=== PATIENT | female | born 1940 | race Caucasian/White ===

== ENCOUNTER → 2016-09-25 | Outpatient (REF) | payer MEDICARE, BC ==
[~2016-09-25] MED LIST: ACET500C PO; ASPI1TAB PO; CALC500T19 PO; CITRTAB15 PO; COUM1TAB17 PO; CRAN250T PO; FLAX1000 PO; FLOM5CAP PO; FLON1SPR; FLUTISP; IMOD2TAB16 PO; LEVO50TA5 PO; LEVO75TA4 PO; METR0.7533 PV; OMEP40CA2 PO; PROBCAP4 PO; REST0.05 OU; SERT-141 PO; SIMV40TA2 PO; TOPR25TA PO
== END ==
LOC: M LAB REF 08:30
PROVIDERS: ATTEND Internal Medicine
DX: R19.7 Diarrhea, unspecified (principal)

== ENCOUNTER → 2016-09-26 | Outpatient (CLI) | payer MEDICARE, BC ==
--- NOTE | 2016-09-26 12:29 | REPMRS ---
Patient History The patient states she has not had a clinical breast exam in over a year. Patient is postmenopausal. Family history of colorectal cancer in father at age 50 or over, breast cancer in mother at age 30, colorectal cancer in paternal cousin at age 74, and endometrial cancer in paternal cousin under age 50. Benign excisional biopsy of both breasts. Benign excisional biopsy of the right breast. Took unspecified hormones for 7 years. Digital Woman Screen Mammo: September 26, 2016 - Exam #: [id number] Bilateral CC and MLO view(s) were taken. Technologist: Shaneka Murphy Technologist Prior study comparison: September 19, 2015, digital woman screen mammo performed at [facility] to [facility]. September 13, 2014, digital woman screen mammo performed at [facility]. September 03, 2013, bilateral bilat screen digital mammo, performed at [facility] ([facility] FINDINGS: There are scattered fibroglandular densities. There has been no change in the appearance of the mammogram from the prior studies. There is a mild amount of scattered fibroglandular density which is fairly symmetric. There is no interval development of dominant mass, architectural distortion, or clustered microcalcification suggestive of malignancy. ASSESSMENT: BI-RADS/ACR category 1 mammogram. Negative. Recommendation Routine screening mammogram in 1 year (for women over age 40). This mammogram was interpreted with the aid of an FDA-approved computer-aided dectection system. Electronically Signed By: Tomi Quiñonez MD 09/26/16 0259
--- NOTE | 2016-09-27 08:54 | DEXA ---
AP SPINE L1 - L4 1.216 0.2 1.7 LT FEMUR TOTAL 0.855 -1.2 0.5 RT FEMUR TOTAL 0.860 -1.2 0.5 TOTAL BODY TOTAL OTHER DUAL FEMUR FRAX* ASSESSMENT Risk factors: Premature menopause. 10 year probability of fracture Major osteoporotic fracture 14.7 % Hip fracture 4.0 % COMMENTS: Normal bone densitometry of the spine. There is low bone density of the hips. The density the spine has increased 3.9% since initial exam on 06/23/2006. The spine density has increased 1.9% since the most recent exam on 11/08/2013. The density of the left hip has decreased 1.0% since initial exam on 06/23/2006. The density of the left hip has decreased 1.2% since the most recent exam on . The density of the right hip has decreased 0.8% since initial exam on 2005. The density of the right hip has increased 0.1% since the most recent exam on . FOLLOW-UP: Recommendation for the next bone density exam: 2 years. MARGRET
== END ==
LOC: M WHC 10:59
PROVIDERS: ATTEND Internal Medicine
DX: Z12.31 Encounter for screening mammogram for malignant neoplasm of breast (principal); Z13.820 Encounter for screening for osteoporosis; M85.80 Other specified disorders of bone density and structure, unspecified site; M81.0 Age-related osteoporosis without current pathological fracture; Z80.3 Family history of malignant neoplasm of breast; Z79.899 Other long term (current) drug therapy
CPT/HCPCS: 77080; G0202

== ENCOUNTER → 2016-11-14 | Outpatient (CLI) | payer MEDICARE, BC ==
[~2016-11-14] MED LIST changes: -SERT-141 PO; +SERT50TA PO
[2016-11-14 18:05] LABS: FOLATE > 24.0 NG/ML (>5.4)
[2016-11-14 18:17] LABS: ALBUMIN 3.9 GM/DL (3.2-5.2); ALBUMIN/GLOBULIN RATIO 1.22 (1.00-1.93); ALKALINE PHOSPHATASE 70 U/L (45-117); ALT/SGPT 23 U/L (12-78); ANION GAP 7 MEQ/L (8-16); AST/SGOT 21 U/L (15-37); BILIRUBIN,TOTAL 0.4 MG/DL (0.2-1.0); BLOOD UREA NITROGEN 19 MG/DL (7-18); CALCIUM LEVEL 8.8 MG/DL (8.8-10.2); CARBON DIOXIDE LEVEL 30 MEQ/L (21-32); CHLORIDE LEVEL 104 MEQ/L (98-107); CREATININE FOR GFR 0.76 MG/DL (0.55-1.02); GLOMERULAR FILTRATION RATE > 60.0 (>39); GLUCOSE, FASTING 86 MG/DL (83-110); POTASSIUM SERUM 4.3 MEQ/L (3.5-5.1); SODIUM LEVEL 141 MEQ/L (136-145); TOTAL PROTEIN 7.1 GM/DL (6.4-8.2)
[2016-11-14 18:32] LABS: BASO % 0.4 % (0.0-1.0); EOS # 0.1 K/mm3 (0.0-0.50); EOS % 2.4 % (0.0-3.0); LARGE UNSTAINED CELL # 0.1 K/mm3 (0.0-0.4); LARGE UNSTAINED CELL % 1.7 % (0.0-4.0); LYMPH # 1.3 K/mm3 (1.5-4.5); MEAN CORPUSCULAR HEMOGLOBIN 29.2 pg (27.0-33.0); MEAN CORPUSCULAR HGB CONC 32.4 g/dl (32.0-36.5); MEAN CORPUSCULAR VOLUME 90.3 fl (80.0-96.0); MONO # 0.3 K/mm3 (0.0-0.8); MONO % 4.8 % (0.0-5.0); NEUTROPHILS # 3.9 K/mm3 (1.8-7.7); NEUTROPHILS % 67.8 % (36.0-66.0); PLATELET COUNT, AUTOMATED 268 k/mm3 (150-450); RED CELL DISTRIBUTION WIDTH 13.8 % (11.5-14.5); WHITE BLOOD COUNT 5.8 K/mm3 (4.0-10.0)
[2016-11-14 18:38] LABS: VITAMIN B12 LEVEL 464 PG/ML (247-911)
[2016-11-14 19:52] LABS: ERYTHROCYTE SEDIMENTATION RATE 22 mm/hr (0-30)
[2016-11-17 14:09] LABS: VITAMIN E LEVEL 22.9 mg/L (6.5-21.5)
[2016-11-18 12:43] LABS: ALBUMIN 4.26 GM/DL (3.29-5.55); GAMMA GLOBULIN % 13.7 % (11.1-18.8)
== END ==
LOC: M WUC 11:50
PROVIDERS: ATTEND Psychiatry & Neurology Neurology
DX: R51 Headache (principal); R41.82 Altered mental status, unspecified

== ENCOUNTER → 2016-11-14 | Outpatient (CLI) | payer MEDICARE, BC | LOC: M WUC 11:55 | PROVIDERS: ATTEND Ophthalmology | DX: H43.813 Vitreous degeneration, bilateral (principal); R51 Headache; R41.82 Altered mental status, unspecified; Z79.899 Other long term (current) drug therapy; Z79.01 Long term (current) use of anticoagulants ==

== ENCOUNTER → 2016-12-19 | Outpatient (CLI) | payer MEDICARE, BC ==
[2016-12-19 11:18] LABS: INR 2.21
== END ==
LOC: M WUC 09:54
PROVIDERS: ATTEND Internal Medicine Cardiovascular Disease
DX: I48.2 Chronic atrial fibrillation (principal)

== ENCOUNTER → 2017-03-01 | Outpatient (CLI) | payer MEDICARE, BC ==
--- NOTE | 2017-03-01 16:09 | REP ---
Clinical: Cough and fever . Comparison: 04/25/2016 . Technique: PA and lateral. Findings: The mediastinum and cardiac silhouette are stable and within normal limits. Evidence for prior sternotomy again noted. The lung matute demonstrate chronic stable changes without acute consolidation, effusion, or pneumothorax. The skeletal structures are intact and normal. Impression: Chronic stable changes. No acute cardiopulmonary process. Signed by Hema Phillips MD 03/01/2017 04:01 P
== END ==
LOC: M WUC 15:50
PROVIDERS: ATTEND Physician Assistant
DX: R05 Cough (principal); R50.9 Fever, unspecified

== ENCOUNTER → 2017-05-19 | Outpatient (REF) | payer MEDICARE, BC ==
[2017-05-19 15:11] LABS: SQUAMOUS EPITHELIAL CELL URINE SMALL AMOUNT /hpf (SMALL AMT)
[2017-05-19 15:12] LABS: BACTERIA, URINE MOD AMOUNT; MICROSCOPIC EXAM PERFORMED
== END ==
LOC: M SMT 13:13
PROVIDERS: ATTEND Specialist
DX: R39.14 Feeling of incomplete bladder emptying (principal)
CPT/HCPCS: 51798; 81015; 87088; 87186; G0463

== ENCOUNTER → 2017-06-12 | Outpatient (REF) | payer MEDICARE, BC ==
[2017-06-12 18:45] LABS: BACTERIA, URINE NONE SEEN; HYALINE CAST, URINE NONE SEEN /lpf (0-1); MICROSCOPIC EXAM PERFORMED; RBC, URINE NONE SEEN /hpf (0-3); SQUAMOUS EPITHELIAL CELL URINE SMALL AMOUNT /hpf (SMALL AMT); WBC, URINE 0-1 /hpf (0-3)
== END ==
LOC: M SMT 17:07
PROVIDERS: ATTEND Specialist
DX: R39.14 Feeling of incomplete bladder emptying (principal)

== ENCOUNTER → 2017-09-29 | Outpatient (CLI) | payer MEDICARE, BC | LOC: M WHC 09:20 | DX: Z12.31 Encounter for screening mammogram for malignant neoplasm of breast (principal); Z78.0 Asymptomatic menopausal state; Z80.3 Family history of malignant neoplasm of breast; Z92.23 Personal history of estrogen therapy | CPT/HCPCS: 77067 ==

== ENCOUNTER → 2017-12-06 | Outpatient (REF) | payer MEDICARE, BC | LOC: M LAB 10:18 | DX: R19.7 Diarrhea, unspecified (principal) | CPT/HCPCS: 87507 ==

== ENCOUNTER → 2018-01-06 | Outpatient (CLI) | payer MEDICARE, BC ==
[2018-01-06 13:50] LABS: HEMOGLOBIN 12.8 g/dl (12.0-15.5); MEAN CORPUSCULAR HEMOGLOBIN 30.8 pg (27.0-33.0); MEAN CORPUSCULAR HGB CONC 32.8 g/dl (32.0-36.5); PLATELET COUNT, AUTOMATED 262 10^3/uL (150-450); RED BLOOD COUNT 4.15 10^6/uL (4.00-5.40); RED CELL DISTRIBUTION WIDTH 13.6 % (11.5-14.5); WHITE BLOOD COUNT 6.3 10^3/uL (4.0-10.0)
[2018-01-06 14:10] LABS: INR 2.55; PROTHROMBIN TIME 28.5 SECONDS (12.4-14.5)
== END ==
LOC: M WUC 11:46
DX: I48.2 Chronic atrial fibrillation (principal)
CPT/HCPCS: 85610

== ENCOUNTER → 2018-06-01 | Outpatient (REF) | payer MEDICARE, BC ==
[2018-06-01 14:10] LABS: BACTERIA, URINE AUTO 1+ (NEGATIVE); MUCUS, URINE SMALL (NEGATIVE); RBC, URINE AUTO 0 /HPF (0-3); SQUAMOUS EPITHELIAL CELL UR AU 1 /HPF (0-6); WBC, URINE AUTO 6 /HPF (0-3)
== END ==
LOC: M SMT 13:27
DX: R39.9 Unspecified symptoms and signs involving the genitourinary system (principal)
CPT/HCPCS: 81015

== ENCOUNTER → 2018-09-11 | Outpatient (REF) | payer MEDICARE, BC ==
[~2018-09-11] MED LIST changes: -FLAX1000 PO; +FLAX10008 PO; +FLOM0.4C39 PO; -FLOM5CAP PO; -TOPR25TA PO; +TOPR25TA13 PO
[2018-09-11 10:58] LABS: INR 1.95; PROTHROMBIN TIME 22.6 SECONDS (12.1-14.4)
== END ==
LOC: M LAB REF 10:09
PROVIDERS: ATTEND Internal Medicine
DX: I48.2 Chronic atrial fibrillation (principal); Z79.01 Long term (current) use of anticoagulants

== ENCOUNTER → 2018-10-05 | Outpatient (CLI) | payer MEDICARE, BC ==
--- NOTE | 2018-10-05 09:22 | REPMRS ---
Patient History The patient states she has not had a clinical breast exam in over a year. Family history of breast cancer at age 30 in mother, colorectal cancer at age 74 in paternal cousin, endometrial cancer under age 50 in paternal cousin, colorectal cancer at age 50 or over in father. Benign excisional biopsy of both breasts. Benign excisional biopsy of the right breast. Taking estrogen for 1 year 7 months. Took unspecified hormones for 7 years. 3D TOMOSYNTHESIS WAS PERFORMED. Digital Mammo Screening Bilat: October 05, 2018 - Exam #: [id number] Bilateral CC and MLO view(s) were taken. Technologist: Delphine Rodriguez, Technologist Prior study comparison: September 29, 2017, digital woman screen mammo, performed at [facility]. September 26, 2016, digital woman screen mammo, performed at [facility]. FINDINGS: The breast tissue is heterogeneously dense. This may lower the sensitivity of mammography. There has been no change in the appearance of the mammogram from the prior studies. There is a moderate amount of residual fibroglandular tissue which is fairly symmetric. There is no interval development of dominant mass, areas of architectural distortion, or clustered microcalcification typical of malignancy. Assessment: BI-RADS/ACR category 1 mammogram. Negative Mammogram. Recommendation Routine screening mammogram in 1 year (for women over age 40). This mammogram was interpreted with the aid of an FDA-approved computer-aided dectection system. Electronically Signed By: Gumaro Iverson MD 10/05/18 0921
== END ==
LOC: M RAD 08:20
PROVIDERS: ATTEND Internal Medicine
DX: Z12.31 Encounter for screening mammogram for malignant neoplasm of breast (principal); Z80.3 Family history of malignant neoplasm of breast; Z80.0 Family history of malignant neoplasm of digestive organs

== ENCOUNTER → 2018-10-19 | Outpatient (CLI) | payer MEDICARE, BC ==
[2018-10-19 14:18] LABS: BLOOD UREA NITROGEN 18 MG/DL (7-18); CREATININE FOR GFR 0.83 MG/DL (0.55-1.30); GLOMERULAR FILTRATION RATE > 60.0 (>32)
== END ==
LOC: M WUC 09:20
PROVIDERS: ATTEND Psychiatry & Neurology Neurology
DX: N18.9 Chronic kidney disease, unspecified (principal)

== ENCOUNTER 2019-10-25 06:31 | Emergency (ER) | payer MEDICARE, BC ==
[~2019-10-25] VITALS: Ht 167.6 cm; Wt 80.5 kg
[~2019-10-25 06:31] MED LIST changes: -ASPI1TAB PO; +ASPI81TA26 PO; +FLUT50SP17; -FLUTISP; -OMEP40CA2 PO; +OMEP40CA97 PO; +SERT-141 PO; -SERT50TA PO; -SIMV40TA2 PO; +SIMV40TA20 PO; +TOPR25TA PO; -TOPR25TA13 PO
[2019-10-25] MEDS ORDERED: OMEG10002 PO (06:48)
[2019-10-25] MEDS ORDERED: FAMO40TA3 PO (06:48)
[2019-10-25 07:45] LABS: BASO % 0.9 % (0.0-1.0); EOS # 0.1 10^3/uL (0.0-0.5); EOS % 3.3 % (0.0-3.0); HEMATOCRIT 41.1 % (36.0-47.0); HEMOGLOBIN 13.8 g/dl (12.0-15.5); LYMPH # 0.9 10^3/uL (1.5-5.0); LYMPH % 22.2 % (24.0-44.0); MEAN CORPUSCULAR HEMOGLOBIN 31.5 pg (27.0-33.0); MEAN CORPUSCULAR HGB CONC 33.6 g/dl (32.0-36.5); MEAN CORPUSCULAR VOLUME 93.8 fl (80.0-96.0); MONO # 0.4 10^3/uL (0.0-0.8); MONO % 8.5 % (0.0-5.0); NEUTROPHILS # 2.7 10^3/uL (1.5-8.5); NEUTROPHILS % 64.9 % (36.0-66.0); PLATELET COUNT, AUTOMATED 204 10^3/uL (150-450); RED BLOOD COUNT 4.38 10^6/uL (4.00-5.40); WHITE BLOOD COUNT 4.2 10^3/uL (4.0-10.0)
[2019-10-25] MEDS ORDERED: NS 1,000 ML IV ONE (07:45)
[2019-10-25 08:03] LABS: ALBUMIN 3.6 GM/DL (3.2-5.2); BILIRUBIN,DIRECT 0.1 MG/DL (0.0-0.2); BILIRUBIN,TOTAL 0.4 MG/DL (0.2-1.0); CK-MB VALUE MASS 1.4 NG/ML (<3.6); MB/CK RELATIVE INDEX 1.52 (< OR =4); TOTAL PROTEIN 7.2 GM/DL (6.4-8.2); TROPONIN I 0.02 NG/ML (< 0.10)
--- NOTE | 2019-10-25 08:04 | REP ---
Portable chest x-ray: Single view. History: Pre syncope. Comparison chest x-ray: March 01, 2017. Findings: Monitoring electrodes are seen. Median sternotomy wires are noted. Heart size is borderline unchanged. There is some linear fibrosis along the left heart border in the left base. Granulomatous calcific being densities project at the right base. The lungs are otherwise clear. Pulmonary vasculature is not increased. Impression: No acute disease. Electronically Signed by Ayan Quiñonez MD 10/25/2019 07:56 A
[2019-10-25 08:31] LABS: INFLUENZA A AMPLIFICATION NEGATIVE (NEGATIVE); INFLUENZA B AMPLIFICATION NEGATIVE (NEGATIVE)
[2019-10-25 10:20] VITALS: BP 160/80
--- NOTE | 2019-10-25 20:38 | ECGEPIP ---
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
== END 2019-10-25 10:23 | disposition home or self-care (01) ==
LOC: M ED 06:31
DX: I95.1 Orthostatic hypotension (principal); G43.119 Migraine with aura, intractable, without status migrainosus; I48.91 Unspecified atrial fibrillation; I10 Essential (primary) hypertension; K21.9 Gastro-esophageal reflux disease without esophagitis; E03.9 Hypothyroidism, unspecified; Z79.01 Long term (current) use of anticoagulants; Z79.899 Other long term (current) drug therapy; Z88.0 Allergy status to penicillin; Z88.2 Allergy status to sulfonamides; Z88.5 Allergy status to narcotic agent; Z91.89 Other specified personal risk factors, not elsewhere classified

== ENCOUNTER → 2019-10-26 | Outpatient (CLI) | payer MEDICARE, BC ==
[~2019-10-26] MED LIST changes: +FAMO40TA3 PO; +OMEG10002 PO
--- NOTE | 2019-10-26 14:41 | REPMRS ---
Patient History The patient states she has not had a clinical breast exam in over a year. Patient is postmenopausal. Family history of breast cancer at age 30 in mother, colorectal cancer at age 74 in paternal cousin, endometrial cancer under age 50 in paternal cousin, colorectal cancer at age 50 or over in father. Benign excisional biopsy of both breasts. Benign excisional biopsy of the right breast. Taking estrogen for 1 year 7 months. Took unspecified hormones for 7 years. Digital Mammo Screening Bilat: October 26, 2019 - Exam #: [id number] Bilateral CC and MLO view(s) were taken. Technologist: Delphine Rodriguez, Technologist Prior study comparison: October 05, 2018, bilateral digital mammo screening bilat performed at [facility]. September 29, 2017, digital woman screen mammo, performed at [facility] [place]. September 26, 2016, digital woman screen mammo, performed at [facility] [place]. FINDINGS: There are scattered fibroglandular densities. There are large benign calcifications again noted in the right breast. There has been no change in the appearance of the mammogram from the prior studies. There is a mild amount of scattered fibroglandular density which is fairly symmetric. There is no interval development of dominant mass, architectural distortion, or grouped microcalcification suggestive of malignancy. 3-D tomosynthesis shows no additional findings. Assessment: BI-RADS/ACR category 2 mammogram. Benign Findings. Recommendation Routine screening mammogram of both breasts in 1 year (for women over age 40). This patient's Lifetime Breast Cancer Risk is estimated at 2.2 %. This mammogram was interpreted with the aid of an FDA-approved computer-aided dectection system. Electronically Signed By: Tomi Quiñonez MD 10/26/19 [id number]
== END ==
LOC: M WHC 09:29
PROVIDERS: ATTEND Internal Medicine
DX: Z12.31 Encounter for screening mammogram for malignant neoplasm of breast (principal); Z80.3 Family history of malignant neoplasm of breast; Z80.0 Family history of malignant neoplasm of digestive organs; Z80.49 Family history of malignant neoplasm of other genital organs

== ENCOUNTER → 2020-01-25 | Outpatient (REF) | payer MEDICARE, BC | LOC: M LAB REF 16:05 | PROVIDERS: ATTEND Internal Medicine | DX: M25.561 Pain in right knee (principal) ==

== ENCOUNTER → 2020-10-18 | Outpatient (CLI) | payer MEDICARE, BC ==
[2020-10-18 13:52] LABS: HEMATOCRIT 38.9 % (36.0-47.0); HEMOGLOBIN 12.5 g/dl (12.0-15.5); MEAN CORPUSCULAR HEMOGLOBIN 30.2 pg (27.0-33.0); MEAN CORPUSCULAR HGB CONC 32.1 g/dl (32.0-36.5); PLATELET COUNT, AUTOMATED 224 10^3/uL (150-450); RED BLOOD COUNT 4.14 10^6/uL (4.00-5.40); WHITE BLOOD COUNT 8.1 10^3/uL (4.0-10.0)
[2020-10-18 14:06] LABS: INR 3.27; PROTHROMBIN TIME 34.1 SECONDS (12.5-14.3)
== END ==
LOC: M WUC 11:03
PROVIDERS: ATTEND Internal Medicine Cardiovascular Disease
DX: I48.20 Chronic atrial fibrillation, unspecified (principal); Z79.01 Long term (current) use of anticoagulants

== ENCOUNTER → 2020-10-27 | Outpatient (CLI) | payer MEDICARE, BC ==
--- NOTE | 2020-10-27 12:10 | REPMRS ---
Patient History The patient states she has not had a clinical breast exam in over a year. Patient is postmenopausal. Family history of breast cancer at age 30 in mother, colorectal cancer at age 74 in paternal cousin, endometrial cancer under age 50 in paternal cousin, colorectal cancer at age 50 or over in father. Benign excisional biopsy of both breasts. Benign excisional biopsy of the right breast. Took estrogen for 1 year 7 months. Took unspecified hormones for 7 years. 3D TOMOSYNTHESIS WAS PERFORMED. The [facility] lifetime risk for breast cancer is 1.7%. Volpara breast density b. Digital Woman Screen Mammo: October 27, 2020 - Exam #: [id number] Bilateral CC and MLO view(s) were taken. Technologist: Mady Mirza, Technologist Prior study comparison: October 26, 2019, bilateral digital mammo screening bilat, performed at [facility]. October 05, 2018, bilateral digital mammo screening bilat, performed at [facility]. FINDINGS: There are scattered fibroglandular densities. There has been no change in the appearance of the mammogram from the prior studies. There is a mild amount of residual fibroglandular tissue which is fairly symmetric. There is no interval development of dominant mass, architectural distortion, or clustered microcalcification suggestive of malignancy. Assessment: BI-RADS/ACR category 1 mammogram. Negative Mammogram. Recommendation Routine screening mammogram in 1 year (for women over age 40). This mammogram was interpreted with the aid of an FDA-approved computer-aided dectection system. Electronically Signed By: Gumaro Iverson MD 10/27/20 0063
== END ==
LOC: M WHC 11:19
PROVIDERS: ATTEND Internal Medicine
DX: Z12.31 Encounter for screening mammogram for malignant neoplasm of breast (principal)

== ENCOUNTER → 2021-03-26 | Outpatient (REF) | payer MEDICARE, BC ==
[~2021-03-26] MED LIST changes: +OMEP40CA4 PO; -OMEP40CA97 PO
== END ==
LOC: M LAB REF 09:52
PROVIDERS: ATTEND Internal Medicine Gastroenterology
DX: R13.19 Other dysphagia (principal); K44.9 Diaphragmatic hernia without obstruction or gangrene; Z80.0 Family history of malignant neoplasm of digestive organs; R19.4 Change in bowel habit; K22.0 Achalasia of cardia

== ENCOUNTER → 2021-06-29 | Outpatient (CLI) | payer MEDICARE, BC ==
--- NOTE | 2021-06-29 15:22 | REP ---
INDICATION: TANA RIGHT BREAST RIGHT BREAST LUMP. COMPARISON: 10/27/2020 as well as other prior exams. TECHNIQUE: Multiple compression and tomographic images obtained in various projections of the right breast. Focused right breast ultrasound performed. FINDINGS: The parenchymal pattern of the right breast is unchanged. No new mass is seen in the breast. There is no architectural distortion. There are 2 benign calcified fibroadenomas in the medial right breast. No clustered microcalcifications are seen. Volpara breast density B. Real-time sonographic evaluation of the right palpable lump superolaterally near the axilla demonstrates a very superficial hyperechoic nodule which measures 5 x 3 x 5 mm. This appears to be dermal in etiology, or may be just beneath the skin surface and may represent a sebaceous cyst or other benign dermal lesion, or possibly a very superficial tiny lipoma. IMPRESSION: BIRADS/ACR category 2, benign. No mammographic abnormality is identified in the right breast. By ultrasound at the site of the palpable lump, there is a superficial hyperechoic dermal or subdermal nodule measuring 5 x 3 x 5 mm. This is most compatible with a benign dermal lesion such as a sebaceous cyst, or possibly a very superficial tiny lipoma. Tyrer-Cuzick lifetime risk of breast cancer 1.1%. Last clinical breast exam 06/20/2021. This mammogram was interpreted with the aid of an FDA-approved computer-aided detection system. The patient letter being requested is M2. RECOMMENDATION: Recommend clinical correlation. Recommend routine screening bilateral mammogram October 2021. <Electronically signed by Gumaro Iverson > 06/29/21 3545
== END ==
LOC: M WHC 10:42
PROVIDERS: ATTEND Internal Medicine
DX: N63.31 Unspecified lump in axillary tail of the right breast (principal)
CPT/HCPCS: 76642; 77065; G0279

== ENCOUNTER → 2021-10-24 | Outpatient (CLI) | payer MEDICARE, BC | LOC: M WUC 13:53 | PROVIDERS: ATTEND Internal Medicine | DX: R07.81 Pleurodynia (principal); W18.41XA Slipping, tripping and stumbling without falling due to stepping on object, initial encounter; Y92.9 Unspecified place or not applicable; Y93.9 Activity, unspecified; Y99.9 Unspecified external cause status ==

== ENCOUNTER → 2021-10-29 | Outpatient (CLI) | payer MEDICARE, BC | LOC: M WHC 11:40 | PROVIDERS: ATTEND Internal Medicine | DX: Z12.31 Encounter for screening mammogram for malignant neoplasm of breast (principal); M85.80 Other specified disorders of bone density and structure, unspecified site; Z53.9 Procedure and treatment not carried out, unspecified reason ==

== ENCOUNTER → 2021-11-08 | Outpatient (REF) | payer MEDICARE, BC ==
[2021-11-09 12:32] LABS: PERCENT SATURATION 13.5 % (13.2-45.0)
== END ==
LOC: M LAB REF 12:00
PROVIDERS: ATTEND Internal Medicine
DX: D64.9 Anemia, unspecified (principal)

== ENCOUNTER → 2021-11-20 | Outpatient (CLI) | payer MEDICARE, BC | LOC: M WHC 12:38 | PROVIDERS: ATTEND Nurse Practitioner Adult Health | DX: N63.20 Unspecified lump in the left breast, unspecified quadrant (principal); N60.12 Diffuse cystic mastopathy of left breast; M85.851 Other specified disorders of bone density and structure, right thigh; M85.852 Other specified disorders of bone density and structure, left thigh; N60.11 Diffuse cystic mastopathy of right breast | CPT/HCPCS: 76642; 77066; 77080; G0279 ==

== ENCOUNTER → 2022-01-30 | Outpatient (REF) | payer MEDICARE, BC ==
[2022-01-30 16:40] LABS: BLOOD UREA NITROGEN 21 MG/DL (7-18); CREATININE FOR GFR 0.82 MG/DL (0.55-1.30); GLOMERULAR FILTRATION RATE > 60.0 (>32)
== END ==
LOC: M LABWUC 16:02
PROVIDERS: ATTEND Psychiatry & Neurology Neurology
DX: I10 Essential (primary) hypertension (principal)

== ENCOUNTER → 2022-03-22 | Outpatient (CLI) | payer MEDICARE, BC ==
[2022-03-22 12:26] LABS: C REACTIVE PROTEIN QUANTITATIV < 0.30 MG/DL (0.00-0.30); RHEUMATOID FACTOR QUANT < 10.0 IU/ML (<15.0)
== END ==
LOC: M PLALAB 10:49
PROVIDERS: ATTEND Physician Assistant
DX: M17.12 Unilateral primary osteoarthritis, left knee (principal)

== ENCOUNTER → 2022-05-21 | Outpatient (REF) | payer MEDICARE, BC | LOC: M LAB REF 13:21 | PROVIDERS: ATTEND Internal Medicine | DX: N39.0 Urinary tract infection, site not specified (principal) ==

== ENCOUNTER → 2022-06-18 | Outpatient (REF) | payer MEDICARE, BC | LOC: M LAB REF 16:28 | PROVIDERS: ATTEND Internal Medicine | DX: N39.0 Urinary tract infection, site not specified (principal) ==

== ENCOUNTER → 2022-07-01 | Outpatient (REF) | payer MEDICARE, BC ==
[~2022-07-01] MED LIST changes: +METR0.7526 PV; -METR0.7533 PV
[2022-07-01 19:50] LABS: APPEARANCE, URINE MANUAL CLEAR (CLEAR); COLOR, URINE MANUAL YELLOW (YELLOW)
[2022-07-01 19:51] LABS: BILIRUBIN, URINE MANUAL NEGATIVE (NEGATIVE); BLOOD URINE MANUAL NEGATIVE (NEGATIVE); GLUCOSE, URINE (UA) MANUAL NEGATIVE (NEGATIVE); KETONE, URINE MANUAL NEGATIVE (NEGATIVE); LEUKOCYTE ESTERASE, URINE MAN POSITIVE (NEGATIVE); NITRITE, URINE MANUAL POSITIVE (NEGATIVE); PROTEIN, URINE MANUAL NEGATIVE (NEGATIVE); UROBILINOGEN, URINE MANUAL NORMAL (NORMAL)
[2022-07-01 20:31] LABS: RBC, URINE 0-1 /hpf (0-3); SQUAMOUS EPITHELIAL CELL URINE SMALL AMOUNT /hpf (SMALL AMT); WBC, URINE TNTC /hpf (0-3)
[2022-07-01 20:32] LABS: BACTERIA, URINE LARGE AMOUNT; HYALINE CAST, URINE NONE SEEN /lpf (0-1); MUCUS, URINE MOD AMOUNT (NEGATIVE)
== END ==
LOC: M SMT 16:39
PROVIDERS: ATTEND Urology
DX: Z87.440 Personal history of urinary (tract) infections (principal)

== ENCOUNTER → 2022-07-10 | Outpatient (CLI) | payer MEDICARE, BC ==
[2022-07-10 21:23] LABS: BLOOD UREA NITROGEN 18 MG/DL (9-23); CALCIUM LEVEL 9.6 MG/DL (8.3-10.6); CARBON DIOXIDE LEVEL 28 MMOL/L (20-31); CHLORIDE LEVEL 105 MMOL/L (98-107); CREATININE FOR GFR 0.72 MG/DL (0.55-1.30); GLOMERULAR FILTRATION RATE > 60.0 (>32); GLUCOSE, FASTING 135 MG/DL (74-106); POTASSIUM SERUM 4.1 MMOL/L (3.5-5.1); SODIUM LEVEL 142 MMOL/L (136-145)
== END ==
LOC: M WUC 15:18
PROVIDERS: ATTEND Nurse Practitioner Family
DX: I36.1 Nonrheumatic tricuspid (valve) insufficiency (principal)

== ENCOUNTER → 2022-10-15 | Outpatient (REF) | payer MEDICARE, BC ==
[2022-10-15 13:28] LABS: APPEARANCE, URINE CLOUDY (CLEAR); BACTERIA, URINE AUTO 2+ (NEGATIVE); BILIRUBIN, URINE AUTO NEGATIVE (NEGATIVE); BLOOD, URINE BLOOD NEGATIVE (NEGATIVE); COLOR, URINE AMBER (YELLOW); GLUCOSE, URINE (UA) AUTO NEGATIVE (NEGATIVE); KETONE, URINE AUTO NEGATIVE (NEGATIVE); LEUKOCYTE ESTERASE, URINE AUTO TRACE (NEGATIVE); NITRITE, URINE AUTO POSITIVE (NEGATIVE); PROTEIN, URINE AUTO NEGATIVE (NEGATIVE); RBC, URINE AUTO 1 /HPF (0-3); SPECIFIC GRAVITY URINE AUTO 1.011 (1.002-1.035); SQUAMOUS EPITHELIAL CELL UR AU 0 /HPF (0-6); UROBILINOGEN, URINE AUTO 0.2 mg/dL (0.0-2.0); WBC, URINE AUTO 8 /HPF (0-3)
== END ==
LOC: M SMT 12:51
PROVIDERS: ATTEND Urology
DX: Z87.440 Personal history of urinary (tract) infections (principal); Z79.899 Other long term (current) drug therapy

== ENCOUNTER → 2022-11-21 | Outpatient (CLI) | payer MEDICARE, BC | LOC: M WHC 11:19 | PROVIDERS: ATTEND Internal Medicine | DX: Z12.31 Encounter for screening mammogram for malignant neoplasm of breast (principal) ==

== ENCOUNTER → 2023-03-31 | Outpatient (REF) | payer MEDICARE, BC ==
[2023-03-31 17:07] LABS: BLOOD UREA NITROGEN 18 MG/DL (9-23); CALCIUM LEVEL 8.9 MG/DL (8.3-10.6); CARBON DIOXIDE LEVEL 28 MMOL/L (20-31); CHLORIDE LEVEL 107 MMOL/L (98-107); CREATININE FOR GFR 0.68 MG/DL (0.55-1.30); GLOMERULAR FILTRATION RATE > 60.0 (>32); GLUCOSE, FASTING 83 MG/DL (74-106); POTASSIUM SERUM 4.3 MMOL/L (3.5-5.1); SODIUM LEVEL 142 MMOL/L (136-145)
== END ==
LOC: M LABWUC 16:34
PROVIDERS: ATTEND Nurse Practitioner Family
DX: I36.1 Nonrheumatic tricuspid (valve) insufficiency (principal)

== ENCOUNTER → 2023-05-30 | Outpatient (CLI) | payer MEDICARE, BC ==
[2023-05-30 14:02] LABS: APPEARANCE, URINE CLOUDY (CLEAR); BACTERIA, URINE AUTO 1+ (NEGATIVE); BILIRUBIN, URINE AUTO NEGATIVE (NEGATIVE); BLOOD, URINE BLOOD NEGATIVE (NEGATIVE); COLOR, URINE AMBER (YELLOW); GLUCOSE, URINE (UA) AUTO NEGATIVE (NEGATIVE); KETONE, URINE AUTO NEGATIVE (NEGATIVE); LEUKOCYTE ESTERASE, URINE AUTO TRACE (NEGATIVE); MUCUS, URINE SMALL (NEGATIVE); NITRITE, URINE AUTO POSITIVE (NEGATIVE); PROTEIN, URINE AUTO NEGATIVE (NEGATIVE); RBC, URINE AUTO 0 /HPF (0-3); SPECIFIC GRAVITY URINE AUTO 1.014 (1.002-1.035); SQUAMOUS EPITHELIAL CELL UR AU 1 /HPF (0-6); UROBILINOGEN, URINE AUTO 0.2 mg/dL (0.0-2.0); WBC, URINE AUTO 5 /HPF (0-3)
[2023-05-30 14:36] LABS: CHOLESTEROL RISK RATIO 2.36 (<5); HDL CHOLESTEROL 69.9 MG/DL (>40); LDL CHOLESTEROL 78.3 MG/DL (<100); MAGNESIUM LEVEL 1.9 MG/DL (1.8-2.4); NON-HDL-C 95.1 MG/DL
== END ==
LOC: M WUC 10:17
PROVIDERS: ATTEND Internal Medicine
DX: I10 Essential (primary) hypertension (principal); I48.0 Paroxysmal atrial fibrillation; E03.9 Hypothyroidism, unspecified; E78.00 Pure hypercholesterolemia, unspecified

== ENCOUNTER → 2023-05-30 | Outpatient (CLI) | payer MEDICARE, BC ==
[2023-05-30 14:08] LABS: BASO # 0.1 10^3/uL (0.0-0.2); BASO % 0.9 % (0.0-1.0); EOS # 0.1 10^3/uL (0.0-0.5); EOS % 2.5 % (0.0-3.0); HEMATOCRIT 41.5 % (36.0-47.0); HEMOGLOBIN 13.6 g/dl (12.0-15.5); LYMPH # 1.3 10^3/uL (1.5-5.0); LYMPH % 22.9 % (24.0-44.0); MEAN CORPUSCULAR HEMOGLOBIN 30.9 pg (27.0-33.0); MEAN CORPUSCULAR HGB CONC 32.8 g/dl (32.0-36.5); MEAN CORPUSCULAR VOLUME 94.3 fl (80.0-96.0); MONO # 0.4 10^3/uL (0.0-0.8); MONO % 7.2 % (2.0-8.0); NEUTROPHILS # 3.8 10^3/uL (1.5-8.5); NEUTROPHILS % 66.3 % (36.0-66.0); PLATELET COUNT, AUTOMATED 221 10^3/uL (150-450); WHITE BLOOD COUNT 5.7 10^3/uL (4.0-10.0)
[2023-05-30 14:21] LABS: ERYTHROCYTE SEDIMENTATION RATE 22 mm/hr (0-30); HEMOGLOBIN A1c 5.2 % (4.0-6.0)
[2023-05-30 14:36] LABS: ALBUMIN 4.1 G/DL (3.2-5.2); ALKALINE PHOSPHATASE 70 U/L (46-116); ALT/SGPT 13 U/L (7.0-40); AST/SGOT 15 U/L (<34); BILIRUBIN,TOTAL 0.6 MG/DL (0.3-1.2); BLOOD UREA NITROGEN 24 MG/DL (9-23); CALCIUM LEVEL 9.2 MG/DL (8.3-10.6); CARBON DIOXIDE LEVEL 31 MMOL/L (20-31); CHLORIDE LEVEL 106 MMOL/L (98-107); CREATININE FOR GFR 0.71 MG/DL (0.55-1.30); FOLATE 14.15 NG/ML (>5.4); GLOMERULAR FILTRATION RATE > 60.0 (>32); GLUCOSE, FASTING 93 MG/DL (74-106); POTASSIUM SERUM 4.4 MMOL/L (3.5-5.1); SODIUM LEVEL 142 MMOL/L (136-145); VITAMIN B12 LEVEL 342 PG/ML (211-911)
[2023-05-30 14:38] LABS: RHEUMATOID FACTOR QUANT < 3.5 IU/ML (<14)
[2023-06-04 12:08] LABS: ANTINUCLEAR ANTIBODIES DIRECT Negative (Negative); VITAMIN B1 LEVEL WHOLE BLOOD 93.9 nmol/L (66.5-200.0); VITAMIN B6,PYRIDOXAL PHOSPHATE 9.9 ug/L (3.4-65.2); VITAMIN E(GAMMA TOCOPHEROL) 1.2 mg/L (0.5-4.9)
== END ==
LOC: M WUC 10:13
PROVIDERS: ATTEND Psychiatry & Neurology Neurology
DX: R41.89 Other symptoms and signs involving cognitive functions and awareness (principal); I10 Essential (primary) hypertension; I48.0 Paroxysmal atrial fibrillation; E03.9 Hypothyroidism, unspecified; E78.00 Pure hypercholesterolemia, unspecified; Z79.899 Other long term (current) drug therapy

== ENCOUNTER → 2023-08-29 | Outpatient (CLI) | payer MEDICARE, BC | LOC: M PAIN 13:00 | PROVIDERS: ATTEND Nurse Practitioner Family | DX: M79.10 Myalgia, unspecified site (principal); M70.62 Trochanteric bursitis, left hip; M51.16 Intervertebral disc disorders with radiculopathy, lumbar region; G89.29 Other chronic pain; Z80.0 Family history of malignant neoplasm of digestive organs; Z80.51 Family history of malignant neoplasm of kidney; Z80.52 Family history of malignant neoplasm of bladder; Z88.0 Allergy status to penicillin; Z88.2 Allergy status to sulfonamides; Z88.5 Allergy status to narcotic agent; Z91.09 Other allergy status, other than to drugs and biological substances; Z79.01 Long term (current) use of anticoagulants; Z79.899 Other long term (current) drug therapy ==

== ENCOUNTER → 2023-11-24 | Outpatient (CLI) | payer MEDICARE, BC | LOC: M WHC 12:57 | PROVIDERS: ATTEND Internal Medicine | DX: Z12.31 Encounter for screening mammogram for malignant neoplasm of breast (principal); Z13.820 Encounter for screening for osteoporosis; M85.80 Other specified disorders of bone density and structure, unspecified site ==

== ENCOUNTER 2024-01-27 09:46 | Outpatient (CLI) | payer MEDICARE, BC ==
[~2024-01-27] VITALS: Ht 167.6 cm; Wt 78.0 kg
[2024-01-27 10:30] VITALS: BP 163/82; O2SAT 97
[2024-01-27] MEDS: ZOLEDRONIC ACID 5 MG in IV 1 EA IV ONE (10:35)
[2024-01-27 11:26] VITALS: BP 138/68; O2SAT 97
== END 2024-01-27 11:30 | disposition home or self-care (01) ==
LOC: M INFU 09:46
PROVIDERS: ATTEND Internal Medicine
DX: M89.9 Disorder of bone, unspecified (principal); Z88.0 Allergy status to penicillin; Z88.2 Allergy status to sulfonamides; Z88.5 Allergy status to narcotic agent; Z91.89 Other specified personal risk factors, not elsewhere classified
CPT/HCPCS: 96413; J3489

== ENCOUNTER → 2024-03-23 | Outpatient (CLI) | payer MEDICARE, BC | LOC: M WUC 14:16 | PROVIDERS: ATTEND Internal Medicine | DX: M50.321 Other cervical disc degeneration at C4-C5 level (principal); M50.322 Other cervical disc degeneration at C5-C6 level ==

== ENCOUNTER → 2024-06-04 | Outpatient (REF) | payer MEDICARE, BC | LOC: M LAB REF 13:00 | PROVIDERS: ATTEND Internal Medicine | DX: L65.9 Nonscarring hair loss, unspecified (principal); R53.83 Other fatigue ==

== ENCOUNTER → 2024-06-24 | Outpatient (REF) | payer MEDICARE, BC | LOC: M LAB REF 16:17 | PROVIDERS: ATTEND Nurse Practitioner Family | DX: R30.0 Dysuria (principal) ==

== ENCOUNTER → 2024-09-08 | Outpatient (REF) | payer MEDICARE, BC ==
[2024-09-08 13:07] LABS: VITAMIN B12 LEVEL 499 PG/ML (211-911)
[2024-09-08 13:13] LABS: FOLATE > 24.0 NG/ML (>5.4)
[2024-09-09 16:11] LABS: PROTEIN, TOTAL SO 6.7 g/dL (6.1-8.1)
== END ==
LOC: M LAB REF 12:15
PROVIDERS: ATTEND Internal Medicine
DX: G62.9 Polyneuropathy, unspecified (principal)

== ENCOUNTER → 2024-11-26 | Outpatient (CLI) | payer MEDICARE, BC | LOC: M WHC 10:35 | PROVIDERS: ATTEND Internal Medicine | DX: Z12.31 Encounter for screening mammogram for malignant neoplasm of breast (principal); R92.313 Mammographic fatty tissue density, bilateral breasts ==

== ENCOUNTER 2025-04-01 19:57 | Emergency (ER) | payer MEDICARE, BC ==
[~2025-04-01] VITALS: Ht 167.6 cm; Wt 78.3 kg
[~2025-04-01 19:57] MED LIST changes: -FLOM0.4C39 PO; +TAMS-18 PO
[2025-04-01] MEDS ORDERED: LOSA50TA28 PO (20:12)
[2025-04-01] MEDS ORDERED: ELIQ5TAB PO (20:12)
[2025-04-01] MEDS ORDERED: FURO20TA2 PO (20:12)
[2025-04-01] MEDS ORDERED: OMEP-173 PO (20:12)
[2025-04-01] MEDS ORDERED: ZOLO100T PO (20:12)
[2025-04-01] MEDS: TETANUS/DIPHTH/ACEL. PERTUSSIS 0.5 ML SYR IM ONE (21:24)
[2025-04-01 21:39] VITALS: BP 129/65; TEMP 97.4; O2SAT 95
== END 2025-04-01 21:42 | disposition home or self-care (01) ==
LOC: M ED 19:57
DX: S00.01XA Abrasion of scalp, initial encounter (principal); S00.03XA Contusion of scalp, initial encounter; W01.198A Fall on same level from slipping, tripping and stumbling with subsequent striking against other object, initial encounter; M50.321 Other cervical disc degeneration at C4-C5 level; M50.322 Other cervical disc degeneration at C5-C6 level; I48.91 Unspecified atrial fibrillation; I44.4 Left anterior fascicular block; Z88.0 Allergy status to penicillin; Z88.2 Allergy status to sulfonamides; Z88.5 Allergy status to narcotic agent; Z91.048 Other nonmedicinal substance allergy status; Z79.01 Long term (current) use of anticoagulants; Z79.1 Long term (current) use of non-steroidal anti-inflammatories (NSAID); Z79.899 Other long term (current) drug therapy; Y92.838 Other recreation area as the place of occurrence of the external cause; Y93.11 Activity, swimming; Y99.9 Unspecified external cause status; Z23 Encounter for immunization

== ENCOUNTER → 2025-06-01 | Outpatient (REF) | payer MEDICARE, BC ==
[~2025-06-01] MED LIST changes: +ELIQ5TAB PO; +FURO20TA2 PO; +LOSA50TA28 PO; +OMEP-173 PO; +ZOLO100T PO
[2025-06-01 14:00] LABS: RHEUMATOID FACTOR QUANT < 3.5 IU/ML (<14)
[2025-06-01 14:03] LABS: VITAMIN B12 LEVEL 536 PG/ML (211-911)
[2025-06-01 16:49] LABS: ESTIMATED AVERAGE GLUCOSE 105.0 MG/DL (60-110)
[2025-06-02 11:57] LABS: PROTEIN, TOTAL SO 7.1 g/dL (6.1-8.1)
== END ==
LOC: M LAB REF 12:17
PROVIDERS: ATTEND Internal Medicine
DX: G62.9 Polyneuropathy, unspecified (principal); Z79.899 Other long term (current) drug therapy